=== PATIENT | female | born 1955 | race Caucasian/White ===

== ENCOUNTER 2021-02-28 15:29 | Inpatient (IN) | payer MEDICARE, OTHER ==
[~2021-02-28] VITALS: Ht 154.9 cm; Wt 77.6 kg
--- NOTE | 2021-02-28 16:04 | NUR ---
BROCK FROM URGENT CARE, TO ER BED 6. AAOX4. NOT IN RESP DISTRESS, BREATHING EVEN AND UNLABORED. AMBULATORY. SENT BY URGENT CARE FOR MID AND LEFT SIDED CHEST PAIN X 3 DAYS. ALSO, SHE WOKE UP THIS MORNING ON THE FLOOR. SHE DOES NOT REMEMBER HOW SHE GOT THERE. WAS AT THE BEDSIDE FOR EVAL. ORDERS RECEIVED, NOTED AND CARRIED OUT. IV LINE ESTABLINE ALREADY UPON PRESENTATION WHICH WAS DONE AT THE URGENT CARE. PT PLACED ON MONITOR. MD WAS AT THE BEDSIDE FOR EVAL.
[2021-02-28 16:14] LABS: BASOPHILS # (AUTO) 0.1 /CMM (0.0-0.2); BASOPHILS % (AUTO) 0.9 % (0.0-2.0); EOSINOPHILS % (AUTO) 0.9 % (0.0-6.0); HEMATOCRIT 37 % (33-45); HEMOGLOBIN 12.1 g/dL (11.5-14.8); LYMPHOCYTES # (AUTO) 1.3 /CMM (0.8-4.8); LYMPHOCYTES % (AUTO) 20.9 % (20.0-44.0); MEAN CORPUSCULAR HGB CONC 33 g/dl (31.0-36.0); MEAN CORPUSCULAR VOLUME 90 fL (82-100); MONOCYTES # (AUTO) 0.5 /CMM (0.1-1.30); MONOCYTES % (AUTO) 7.6 % (2.0-12.0); NEUTROPHILS # (AUTO) 4.4 /CMM (1.8-8.9); NEUTROPHILS % (AUTO) 69.7 % (43.0-81.0); PLATELET COUNT (AUTO) 305 /CMM (150-450); WHITE BLOOD COUNT (AUTO) 6.3 K/uL (4.3-11.0)
[2021-02-28 16:24] LABS: CALCIUM, SERUM 9.6 mg/dL (8.5-10.1); CARBON DIOXIDE 26 mmol/L (21-32); CHLORIDE 105 mmol/L (98-107); CREATININE 1.2 mg/dL (0.6-1.3); GLUCOSE 121 mg/dL (74-106); POTASSIUM 4.4 mmol/L (3.5-5.1); SODIUM SERUM 140 mmol/L (136-145); UREA NITROGEN, BLOOD 27 mg/dL (7-18)
[2021-02-28 16:30] LABS: ALANINE AMINOTRANSFERASE 35 U/L (12-78); ALBUMIN 3.9 g/dL (3.4-5.0); ALKALINE PHOSPHATASE 83 U/L (46-116); ASPARTATE AMINOTRANSFERASE 24 U/L (15-37); BILIRUBIN,DIRECT 0.1 mg/dL (0.0-0.2); BILIRUBIN,TOTAL 0.3 mg/dL (0.2-1.0); TOTAL PROTEIN, SERUM 7.6 g/dL (6.4-8.2)
--- NOTE | 2021-02-28 16:43 | NUR ---
COVID SWAB DINE AND SENT TO LAB
[2021-02-28] MEDS ORDERED: METO25TA20 PO (16:50)
[2021-02-28] MEDS ORDERED: FLEC100T2 PO (16:50)
[2021-02-28] MEDS ORDERED: METF-440 PO (16:50)
[2021-02-28] MEDS ORDERED: WARF-58 PO (16:50)
[2021-02-28] MEDS ORDERED: OMEP20CA15 PO (16:50)
[2021-02-28] MEDS ORDERED: PRAV20TA4 PO (16:50)
[2021-02-28] MEDS ORDERED: LOSA25TA27 PO (16:50)
[2021-02-28] MEDS ORDERED: LORA10TA7 PO (16:50)
[2021-02-28] MEDS ORDERED: GLIP5TAB13 PO (16:50)
--- NOTE | 2021-02-28 17:19 | NUR ---
NURSING SUP GAVE 324-2.
--- NOTE | 2021-02-28 17:23 | NUR ---
received a call from the lab regarding covid 19 result, "negative".
[2021-02-28] MEDS ORDERED: NITROGLYCERIN 0.4 MG/TAB BOTTLE SL PRN (17:30)
[2021-02-28] MEDS ORDERED: MORPHINE SULFATE INJ 2 MG/ML DISP.SYRIN IV PRN (17:30)
[2021-02-28] MEDS ORDERED: ONDANSETRON HCL/PF 4 MG/2 ML VIAL IVP PRN (17:30)
--- NOTE | 2021-02-28 17:32 | NUR ---
report given to Henrietta JOHNS for dustin
--- NOTE | 2021-02-28 17:44 | NUR ---
RECEIVED PATIENT FROM ER VIA GURSCOTIA, PATIENT WALKED TO HER BED ON STEADY GAIT. A/OX4 WITH NO SIGNS OF DISTRESS, IN ROOM AIR, PATIENT DENIES PAIN AND DIZZIES AT THE MOMENT, IV R AC SL INTACT. PATIENT WAS ORIENTED TO HER ROOM, SAFETY MEASURES WERE APPLIED, CALL LIGHT WITHIN REACH WILL CONTINUE TO MONITOR.
--- NOTE | 2021-02-28 17:46 | NUR ---
PT TRANSPORTED TO UNIT ON GURNEY WITH EMT AND RN AT BEDSIDE W/ ACLS PROTOCOL. NAD NOTED DURING TRASNPORT. PT AMBULATED FROM GURNEY TO BED ON STEADY GAIT
[2021-02-28] MEDS ORDERED: NITROGLYCERIN PACKET 1 GM PACKET TD ONE (18:00)
[2021-02-28] MEDS ORDERED: ASPIRIN 81 MG TAB.CHEW PO ONE (18:00)
[2021-02-28 18:33] VITALS: BP 128/71
--- NOTE | 2021-02-28 18:55 | NUR ---
RN NOTES A/OX4 WITH NO SIGNS OF DISTRESS, IN ROOM AIR, PATIENT DENIES PAIN AND DIZZIES AT THE MOMENT, IV R AC SL INTACT. PATIENT WAS ORIENTED TO HER ROOM, SAFETY MEASURES WERE APPLIED, CALL LIGHT WITHIN REACH WILL ALL TREATMENTS AND CARE WAS PERFORMED ANTICIPATED, WILL ENDORSE TO THE NEXT FUR FLOOR WORKER NURSE.
[2021-02-28] MEDS ORDERED: WARFARIN SODIUM 5 MG TABLET PO SCH (19:00)
--- NOTE | 2021-02-28 19:15 | NUR ---
BACK END ARCHITECT OPENING NOTES: RECEIVED PATIENT IN BED, AWAKE, A/O X3. NO S/S OF DISTRESS NOTED. CALL LIGHT WITHIN REACH. BED ALARM ON. BED IN LOWEST AND LOCKED POSITION. PER RN TRACY, PATIENT REFUSED THE DVT PUMPS AT THIS TIME, SHE WANTS IT LATER TONIGHT. A FAMILY MEMBER AT THE BEDSIDE.
[2021-02-28 20:18] VITALS: BP 106/72
[2021-02-28] MEDS: FLECAINIDE ACETATE (100 MG) 100 MG TABLET PO SCH (20:28)
[2021-02-28] MEDS: METOPROLOL TARTRATE 25 MG TABLET PO SCH (20:31)
--- NOTE | 2021-02-28 20:40 | NUR ---
PATIENT COMPLAINED OF HEADACHE, INFORMED MD WITH ORDER MADE AND CARRIED OUT.
[2021-02-28] MEDS ORDERED: ACETAMINOPHEN 325 MG TABLET PO PRN (21:00)
[2021-03-01 00:43] VITALS: BP 103/59
[2021-03-01 04:28] LABS: BASOPHILS # (AUTO) 0.1 /CMM (0.0-0.2); BASOPHILS % (AUTO) 1.1 % (0.0-2.0); EOSINOPHILS % (AUTO) 2.2 % (0.0-6.0); HEMATOCRIT 35 % (33-45); HEMOGLOBIN 11.3 g/dL (11.5-14.8); LYMPHOCYTES # (AUTO) 1.7 /CMM (0.8-4.8); MEAN CORPUSCULAR HGB CONC 33 g/dl (31.0-36.0); MEAN CORPUSCULAR VOLUME 89 fL (82-100); MONOCYTES # (AUTO) 0.5 /CMM (0.1-1.30); NEUTROPHILS % (AUTO) 55.7 % (43.0-81.0); PLATELET COUNT (AUTO) 285 /CMM (150-450); RED BLOOD CELL COUNT(AUTO) 3.88 MIL/uL (4.0-5.2); WHITE BLOOD COUNT (AUTO) 5.4 K/uL (4.3-11.0)
[2021-03-01 04:31] VITALS: BP 91/58
[2021-03-01 04:44] LABS: CALCIUM, SERUM 8.5 mg/dL (8.5-10.1); CREATININE 1.2 mg/dL (0.6-1.3); MAGNESIUM 1.8 mg/dL (1.8-2.4); PHOSPHORUS 3.6 mg/dL (2.5-4.9)
[2021-03-01] MEDS ORDERED: PANTOPRAZOLE 40 MG TABLET.DR PO SCH (07:30)
--- NOTE | 2021-03-01 07:58 | NUR ---
RN OPENING NOTE RECEIVED PATIENT IN BED, AO X 4, ABLE TO RESPONDS ALL STIMULI. PATIENT DENIES PAIN OR DISTRESS, SKIN IS WARM TO TOUCH, KEEP CLEAN/DRY INTACT IV SITE. RESPIRATORY EVEN AND UNLABORED ON ROOM AIR. KEPT ELEVATED HOB FOR ENSURE AIRWAY AND ASPIRATION PRECAUTION, ALSO LOWEST BED POSITION. CALL LIGHT WITHIN REACH, WILL CONTINUE TO MONITOR.
[2021-03-01 08:00] VITALS: BP 105/67
[2021-03-01 08:59] LABS: IRON, SERUM 54 ug/dl (50-175); TOTAL IRON BINDING CAPACITY 425 ug/dl (250-450)
[2021-03-01] MEDS ORDERED: ASPIRIN 81 MG TAB.CHEW PO SCH (09:00)
[2021-03-01] MEDS ORDERED: LOSARTAN POTASSIUM 25 MG TABLET PO SCH (09:00)
[2021-03-01] MEDS ORDERED: ATORVASTATIN 10 MG TABLET PO SCH (09:00)
[2021-03-01] MEDS ORDERED: METOPROLOL TARTRATE INJ 5 MG/5 ML AMPUL IVP PRN (09:00)
[2021-03-01] MEDS ORDERED: LORATADINE 10 MG TABLET PO SCH (09:00)
[2021-03-01] MEDS ORDERED: IV NS 0.9% 500 ML IV ONE (09:00)
[2021-03-01] MEDS ORDERED: METFORMIN 500 MG TABLET PO SCH (09:00)
[2021-03-01] MEDS ORDERED: NITROGLYCERIN 0.4 MG/TAB BOTTLE SL ONE (09:00)
[2021-03-01] MEDS ORDERED: glipiZIDE 5 MG TABLET PO SCH (09:00)
[2021-03-01] MEDS: METOPROLOL TARTRATE 25 MG TABLET PO SCH (09:00)
[2021-03-01] MEDS ORDERED: IV NS 0.9% 250 ML IV ONE (09:06)
[2021-03-01] MEDS ORDERED: IOHEXOL-350 100 ML VIAL IV ONE (09:06)
[2021-03-01] MEDS ORDERED: METOPROLOL TARTRATE INJ 5 MG/5 ML AMPUL ONE (09:08)
[2021-03-01] MEDS ORDERED: NITROGLYCERIN 0.4 MG/TAB BOTTLE ONE (09:08)
[2021-03-01 09:10] LABS: FERRITIN 14 ng/mL (8-388)
[2021-03-01 09:30] VITALS: BP 110/54
--- NOTE | 2021-03-01 09:34 | NUR ---
pt consented to CTA heart; all questions answered; No meds given as BP and HR within parameters; pt tolerated procedure; VSS; pt advised not to take OHAs (metformin) for 2 days; verbalized understanding; report given to floor ANDREAS Riggs, transported back to floor via wheelchair
--- NOTE | 2021-03-01 10:00 | NUR ---
Patient had CTA this morning, will hold Metformin next 48 hours.
[2021-03-01] MEDS: FLECAINIDE ACETATE (100 MG) 100 MG TABLET PO SCH (10:09)
--- NOTE | 2021-03-01 12:00 | NUR ---
Patient done CTA with negative result related belt repairer and ok to d/c. Informed primary MD regarding above and received discharge order.
--- NOTE | 2021-03-01 13:10 | NUR ---
Given discharge instruction include follow up assistant manager pt, PCP and continue to home medications. Patient denies pain or discomfort, in stable condition. Patient left facility accompanied by Son, refused wheel chair for assist.
--- NOTE | 2021-03-01 14:11 | NUR ---
Pt on Coumadin, diet education materials provided to pt's discharge file. Noted MD order to discharge pt today.
== END 2021-03-01 14:15 | disposition home or self-care (01) | DRG 311 ==
LOC: ER 15:54 → TELE 17:29 → MED 03-01 12:58
PROVIDERS: ADMIT Internal Medicine; ATTEND Internal Medicine
DX: I20.0 Unstable angina (principal); D68.59 Other primary thrombophilia; I48.0 Paroxysmal atrial fibrillation; E11.9 Type 2 diabetes mellitus without complications; E78.5 Hyperlipidemia, unspecified; I10 Essential (primary) hypertension; K21.9 Gastro-esophageal reflux disease without esophagitis; Z79.01 Long term (current) use of anticoagulants; Z79.84 Long term (current) use of oral hypoglycemic drugs; Z79.899 Other long term (current) drug therapy
CPT/HCPCS: 36415; 71045-TC; 75574; 80048-TC; 80061-TC; 80076-TC; 82728-TC; 83540-TC; 83735-TC; 84100-TC; 84484-TC; 85025-TC; 85610-TC; 85730-TC; 87081-TC; 93307-TC; C9803; G0378; J3490; J7050; Q9967